=== PATIENT | male | born 1965 | race Caucasian/White ===

== ENCOUNTER 2019-10-13 23:45 | Emergency (ER) | payer SELFPAY ==
[2019-10-13] MEDS ORDERED: Lidocaine 5% 700 MG Patch TOP ONE (23:58)
[2019-10-14] MEDS ORDERED: Lidocaine 5% 700 MG Patch TOP ONE (00:16)
--- NOTE | 2019-10-14 00:38 | CR ---
INDICATION: Bilateral anterior rib pain status post injury TECHNIQUE: Chest radiograph, Rib radiographs 5 views bilateral COMPARISON: None FINDINGS: Mediastinum: The mediastinum is normal in appearance. The heart silhouette is normal in size and morphology. Severe coronary artery calcifications are noted. Lung: Both lungs are unremarkable in appearance. No sign of pleural effusion seen. No pneumothorax is identified. Ribs and bones: No definite acute rib fractures are identified in the visualized ribs. The remaining osseous structures are unremarkable for age. Moderate degradation of image quality noted due to body habitus which limits evaluation of the inferior ribs. Soft tissue: Unremarkable. IMPRESSION: 1. No acute cardiopulmonary disease is seen. No acute rib injuries noted. 2. Severe coronary artery calcifications are noted. Dictated by: Jeremi Thomson MD @ 10/14/2019 00:37:58 (Electronically Signed)
--- NOTE | 2019-10-14 00:54 | EDM.PDOC ---
ED HPI GENERAL MEDICAL PROBLEM - General Chief Complaint: General Stated Complaint: CHEST PAIN AND SOB Time Seen by Provider: 10/13/19 23:54 - History of Present Illness INITIAL COMMENTS - FREE TEXT/NARRATIVE: Patient is a 54-year-old male who is complaining of having bilateral anterior chest wall pain after he received a bare from his son on his son's birthday today. He felt several ribs crack now is having pain especially when he takes a deep breath or movement. He denies being short of breath. He denies any dyspnea on exertion. He denies any chest pressure or tightness. He is not diaphoretic or nauseous. He has not had similar symptoms in the past. Taking nothing for his Onset: Today, Sudden Location: Reports: Chest Quality: Reports: Sharp Severity: Moderate Improves with: Reports: Rest Worsens with: Reports: Breathing, Movement Context: Reports: Trauma Associated Symptoms: Reports: No Other Symptoms. Denies: Chest Pain, Cough, Diaphoresis, Shortness of Breath rib pain Pain Score (Numeric/FACES): 7 - Related Data Allergies Allergy/AdvReac Type Severity Reaction Status Date / Time No Known Allergies Allergy Verified 10/13/19 23:48 Home Meds: Home Meds Lidocaine 5% [Lidoderm 5%] 1 patch TOP DAILY PRN #10 patch 10/14/19 [Rx] ED ROS GENERAL - Review of Systems Review Of Systems: Comprehensive ROS is negative, except as noted in HPI. ED EXAM, GENERAL - Physical Exam Exam: See Below Exam Limited By: No Limitations General Appearance: Alert, No Apparent Distress Head: Atraumatic Neck: Normal Inspection, Supple Respiratory/Chest: No Respiratory Distress, Lungs Clear, Normal Breath Sounds, Other (Does have bilateral anterior chest wall tenderness.). No: Chest Non- Tender Cardiovascular: Regular Rate, Rhythm, No JVD GI/Abdominal: Soft, Non-Tender, No Distention Neurological: Alert Psychiatric: Normal Affect Skin Exam: Warm, Dry Course - Vital Signs Text/Narrative:: Bilateral rib x-rays as read by radiologist as no sign of any fracture. Patient feels better with Lidoderm patches. I am recommending that he get over- the-counter Coban wrap his rib belt if this helps him feel better. Patient should take a deep breath every hour while wearing the rib belt. He is to return to emergency department if worse. I am sending him home with a few Laporte tablets. Last Recorded V/S: Last Vital Signs Temp 36.3 C 10/13/19 23:49 Pulse 104 H 10/13/19 23:49 Resp 20 10/13/19 23:49 BP 185/99 H 10/13/19 23:49 Pulse Ox 96 10/13/19 23:49 Departure - Departure Time of Disposition: 00:58 Disposition: Home, Self-Care 01 Condition: Good Clinical Impression: Acute chest wall pain - Discharge Information Instructions: Nonspecific Chest Pain, Adult Additional Instructions: Lidoderm and Coban as directed. Take deep breaths every hour while using Covan. Ibuprofen or Naprosyn with meals. Laporte if needed. Return to ER symptoms are worse. Follow-up with PCP if symptoms continue. Care Plan Goals: The following information is given to patients seen in the emergency department who are being discharged to home. This information is to outline your options for follow-up care. We provide all patients seen in our emergency department with a follow-up referral. The need for follow-up, as well as the timing and circumstances, are variable depending upon the specifics of your emergency department visit. If you don't have a primary care physician on staff, we will provide you with a referral. We always advise you to contact your personal physician following an emergency department visit to inform them of the circumstance of the visit and for follow-up with them and/or the need for any referrals to a consulting specialist. The emergency department will also refer you to a specialist when appropriate. This referral assures that you have the opportunity for follow-up care with a specialist. All of these measure are taken in an effort to provide you with optimal care, which includes your follow-up. Under all circumstances we always encourage you to contact your private physician who remains a resource for coordinating your care. When calling for follow-up care, please make the office aware that this follow-up is from your recent emergency room visit. If for any reason you are refused follow-up, please contact the [facility] Emergency Department at and asked to speak to the emergency department charge nurse. Sepsis Event Note - Evaluation Sepsis Screening Result: No Definite Risk - Focused Exam Vital Signs: Vital Signs Temp Pulse Resp BP Pulse Ox 10/13/19 23:49 36.3 C 104 H 20 185/99 H 96 Date Exam was Performed: 10/13/19 Time Exam was Performed: 23:54
== END 2019-10-14 01:40 | disposition home or self-care (01) ==
LOC: MW.ED 23:45
DX: R07.89 Other chest pain (principal)
CPT/HCPCS: 711112650; 71111-50; 99283; 99284-25; A9270-GY